=== PATIENT | female | born 2000 | race African-American/Black ===

== ENCOUNTER 2024-03-19 19:00 | Inpatient (IN) | payer OTHER ==
[2024-03-22] MEDS ORDERED: Bupivacaine 0.25% HCL 30 ML VIAL ONE (08:00)
[2024-03-22] MEDS ORDERED: Carboprost 250 MCG/ML AMP IM PRN (21:50)
[2024-03-22] MEDS ORDERED: Tranexamic Acid 1,000 MG/10 ML VIAL IVP PRN (21:50)
[2024-03-22] MEDS ORDERED: Promethazine HCl 25 MG/ML VIAL IM PRN (21:50)
[2024-03-22] MEDS ORDERED: Ondansetron PF 4 MG/2 ML Vial IVP PRN (21:50)
[2024-03-22] MEDS ORDERED: Methylergonovine 0.2 MG/ML VIAL IM PRN (21:50)
[2024-03-22] MEDS ORDERED: Diphenoxylate HCl/Atropine Tablet PO PRN (21:50)
[2024-03-22] MEDS ORDERED: hydrALAZINE 20 MG/ML VIAL SLOW IVP PRN (21:50)
[2024-03-22] MEDS ORDERED: Ibuprofen 800 MG TAB PO PRN (21:50)
[2024-03-22] MEDS ORDERED: fentaNYL 50 mcg/mL 1 mL Vial SLOW IVP PRN (21:50)
[2024-03-22] MEDS ORDERED: Misoprostol 200 MCG TAB PR PRN (21:50)
[2024-03-22] MEDS ORDERED: Lidocaine 1% (PF) 30 ML VIAL SC PRN (21:50)
[2024-03-22] MEDS ORDERED: Acetaminophen 500 MG TAB PO PRN (21:50)
[2024-03-22 21:53] VITALS: BMI 36.6
[2024-03-22] MEDS ORDERED: Oxytocin 30 units/NS 500 ML 500 ML IV SCH ×3 (22:00)
[2024-03-22 22:05] LABS: Hematocrit 30.6 % (34.9-44.5); Hemoglobin 10.2 g/dL (12.0-15.5); Mean Corpuscular HGB CONC 33.3 g/dL (32.0-36.0); Mean Corpuscular Hemoglobin 25.6 pg (27.0-33.0); Mean Corpuscular Volume 76.9 fL (81.6-98.3); Mean Platelet Volume 12.2 fL (7.4-10.4); Platelet Count 187 10x3/uL (150-450); RBC Distribution Width 13.2 % (11.5-14.5); Red Blood Cell (RBC) Count 3.98 10x6/uL (3.90-5.03); White Blood Cell (WBC) Count 8.09 10x3/uL (3.5-10.5)
[2024-03-22 22:49] LABS: Syphilis Antibody Nonreactive (Nonreactive); Syphilis Antibody Index 0.03 S/CO (<1.00 Non-Reactive)
[2024-03-22 22:50] LABS: HBsAg Index 0.27 S/CO (0-0.99); Hep B Surf Ag - L&D Non-Reactive S/CO (NonReactive)
[2024-03-23] MEDS: Misoprostol 100 MCG TAB VAG SCH (03:39)
[2024-03-23] MEDS: fentaNYL/Ropivacaine Epidural 100 ML ONE (11:57)
[2024-03-23] MEDS ORDERED: Lactated Ringer's 500 ML IV PRN (12:31)
[2024-03-23] MEDS ORDERED: Naloxone HCl 0.4 mg/ml Vial IVP PRN ×2 (12:31)
[2024-03-23] MEDS ORDERED: diphenhydrAMINE 50 MG/ML VIAL IVP PRN (12:31)
[2024-03-23] MEDS ORDERED: Promethazine HCl 25 MG/ML VIAL IM PRN (12:31)
[2024-03-23] MEDS ORDERED: ePHEDrine Sulfate 50 MG/10 ML VIAL SLOW IVP PRN (12:31)
[2024-03-23] MEDS ORDERED: Acetaminophen 325 MG TAB PO PRN (12:31)
[2024-03-23] MEDS ORDERED: Moisturizing Cream (Eucerin) 113 GM JAR TOP PRN (12:31)
[2024-03-23] MEDS ORDERED: fentaNYL 2 mcg/Ropivacaine 0.2% Epidural 100 ML CADD EPIDURAL SCH (12:45)
[2024-03-23] MEDS ORDERED: Communication Order-Pharmacy FS SCH (12:45)
[2024-03-23] MEDS: Ondansetron PF 4 MG/2 ML Vial IVP PRN (14:34)
[2024-03-23] MEDS ORDERED: Bisacodyl 10 MG SUPP PR PRN (16:25)
[2024-03-23] MEDS ORDERED: Milk Of Magnesia 30 ML UDCUP PO PRN (16:25)
[2024-03-23] MEDS ORDERED: hydrALAZINE 20 MG/ML VIAL SLOW IVP PRN (16:25)
[2024-03-23] MEDS: Ferrous Sulfate 325 MG TAB PO SCH (18:27)
[2024-03-23] MEDS: Boostrix 0.5 ML (Tdap) VIAL (>/=7 yrs of age) IM ONE (18:28)
[2024-03-23] MEDS: Ibuprofen 800 MG TAB PO SCH (21:57)
[2024-03-23] MEDS: Docusate 100 MG CAP PO SCH (21:57)
[2024-03-24 15:57] VITALS: BP 122/64; TEMP 97.6
== END 2024-03-24 18:30 | disposition home or self-care (01) | DRG 807 ==
LOC: CSHLD 03-22 21:00 → CSHPP 03-23 18:10
PROVIDERS: ADMIT Family Medicine; ATTEND Family Medicine
PROC: 10907ZC Drainage of Amniotic Fluid, Therapeutic from Products of Conception, Via Natural or Artificial Opening (ICD-10-PCS; principal; 2024-03-22)
PROC: 10H07YZ Insertion of Other Device into Products of Conception, Via Natural or Artificial Opening (ICD-10-PCS; 2024-03-22)
PROC: 10E0XZZ Delivery of Products of Conception, External Approach (ICD-10-PCS; 2024-03-23)
DX: O48.0 Post-term pregnancy (principal); Z37.0 Single live birth; Z3A.40 40 weeks gestation of pregnancy; O99.214 Obesity complicating childbirth; O26.893 Other specified pregnancy related conditions, third trimester; Z67.11 Type A blood, Rh negative; E66.812 Obesity, class 2; O99.02 Anemia complicating childbirth; D56.3 Thalassemia minor
CPT/HCPCS: 36415; 51702; 85027; 85461; 86780; 86850; 86870; 86900; 86901; 87340; 90384; 96372; J0665; J2405